=== PATIENT | male | born 1945 | race Caucasian/White ===

== ENCOUNTER 2016-10-20 10:01 | Day surgery (SDC) | payer MEDICARE ==
[2016-10-05 15:37] VITALS: BMI 29.0
[~2016-10-20] VITALS: Ht 170.2 cm; Wt 84.1 kg
[~2016-10-20 10:01] MED LIST: ASCO10003 PO; ASPI81TA28 PO; ATOR-24 PO; ATROPINE SULFATE 0.1 MG/ML 5ML SYR IV PRN; BUPR-79 PO; CLOP1TAB15 PO; CeleBREX 200 MG CAP PO SCH; DULA0.5I INJ; EpHEDrine SULFATE INJ 50 MG/ML AMP IV PRN; FENTANYL CITRATE INJ 50 MCG/1 ML 2 ML VIAL IV PRN; FLX10 PO; GARL10007 PO; GLIM4TAB2 PO; HYDROmorphone INJ 1 MG/ML SYR IV PRN; INDO-22 PO; INSU1INJ33 INJ; LACTATED RINGER'S 1000ML 1,000 ML IV SCH; MULT-506 PO; OMEP40CA PO; ONDANSETRON INJ 2 MG/ML 2 ML VIAL IV PRN; PREGABALIN 75 MG CAP PO SCH; TRAM-10 PO
[2016-10-20 10:40] VITALS: BP 140/75; PULSE 75; TEMP 36.7; O2SAT 95; Ht 170.2 cm; Wt 84.1 kg
[2016-10-20] MEDS ORDERED: CYAN100048 PO (11:23)
[2016-10-20] MEDS ORDERED: GLYCOPYRROLATE INJ 0.2 MG/ML VIAL ONE ×2 (11:46→13:18)
[2016-10-20] MEDS ORDERED: NEOSTIGMINE METHYLSULFATE 1 MG/ML 10ML VIAL ONE (11:46)
[2016-10-20] MEDS ORDERED: MIDAZOLAM HCL 1 MG/ML 2ML VIAL ONE (11:46)
[2016-10-20] MEDS ORDERED: ROCURONIUM BROMIDE 10 MG/ML 5 ML VIAL ONE ×2 (11:46→13:41)
[2016-10-20] MEDS ORDERED: PROPOFOL IV EMULSION 10 MG/ML 20 ML VIAL IV ONE (11:46)
[2016-10-20] MEDS ORDERED: FENTANYL CITRATE INJ 50 MCG/1 ML 2 ML VIAL ONE (11:46)
[2016-10-20] MEDS ORDERED: DEXAMETHASONE SOD INJ 4 MG/ML VIAL ONE (11:46)
[2016-10-20] MEDS ORDERED: ONDANSETRON INJ 2 MG/ML 2 ML VIAL ONE (11:46)
[2016-10-20] MEDS ORDERED: LIDOCAINE HCL 2% 2 ML VIAL (20MG/ML) ONE (11:46)
--- NOTE | 2016-10-20 12:02 | History and Physical ---
History & Physical Date Oct 20, 2016. Chief Complaint LBP and neurogenic claudication History of Present Illness The patient is a 71 year old male with complaints of above for years that have worsened despite outpatient therapy. His MRI shows L4-5 stenosis. no incontinence. no numbness at rest. Past Medical/Surgical History HTN CKD stage 3 hx TIA DM type II EGD colonoscopy shoulder surgery Additional History Hepatic Disease: No Endocrine Disorder: No Kidney Disease: Yes Hypertension: Yes Heart Disease: No Bleeding Tendencies: No Infectious Diseases: No Allergies Coded Allergies: Adhesives (Unverified Allergy, Unknown, RASH, 10/20/16) NO KNOWN DRUG ALLERGIES (Unverified Allergy, Unknown, NONE, 10/20/16) Home Medications Scheduled Ascorbic Acid (Vitamin C), 1,000 MG PO BID Aspirin (Aspirin Ec), 81 MG PO UD Atorvastatin (Lipitor), 40 MG PO QPM Bupropion (Wellbutrin Sr), 150 MG PO QAM Clopidogrel (Plavix), 75 MG PO QAM Dulaglutide (Trulicity), 1 DOSE INJ WEEKLY Garlic (Garlic), 1,000 MG PO QAM Glimepiride (Glimepiride), 1 TAB PO BID Indomethacin (Indocin), 25 MG PO PRN Insulin Degludec (Tresiba Flextouch), 30 UNITS INJ QPM Multivitamin (Multivitamin), 1 TAB PO QAM Omeprazole (Prilosec), 40 MG PO BID Tramadol (Ultram), 50 MG PO Q6H Scheduled PRN Cyclobenzaprine HCl (Cyclobenzaprine HCl), 10 MG PO HS PRN for RN Miscellaneous Medications Cyanocobalamin (Vitamin B-12), PO Physical Examination Skin: warm/dry Eyes: normal inspection ENT: normal ENT inspection Head: normocephalic, atraumatic Neck: supple, trachea midline Respiratory/Chest: lungs clear, no respiratory distress Cardiovascular: regular rate, rhythm Back: normal inspection Extremities: normal inspection, normal range of motion Neurologic/Psych: no motor/sensory deficits, alert, normal reflexes, oriented x 3 Diagnosis L4-5 stenosis Plan of Treatment L4-5 decompression
[2016-10-20] MEDS ORDERED: OXYC-57 PO (12:09)
--- NOTE | 2016-10-20 12:10 | Discharge Instructions ---
Discharge Instructions Admission Reason for Admission: Lumbar Spinal Stenosis Discharge Discharge Diagnosis / Problem: Lumbar Stenosis Discharge Goals Goal(s): Decrease discomfort, Improve function, Increase independence Activity Recommendations Activity Limitations: as noted below Lifting Limitations: no more than 5 pounds Exercise/Sports Limitations: until after follow-up appointment May Resume Sexual Activity: after follow-up appointment Shower/Bathe: may shower/bathe in 3 days . Instructions / Follow-Up Instructions / Follow-Up ACTIVITY RECOMMENDATIONS: SELF CARE INSTRUCTIONS AFTER A LAMINECTOMY 1. No prolonged sitting (less than 30 minutes for the first 3 weeks after surgery). 2. No bending, lifting more than 5 pounds, or twisting (roll like a log when turning in bed). 3. You may shower 3 days after surgery if no drainage from wound. Thoroughly dry wound. Do not soak in the tub. 4. Please walk as much as you can for exercise. Gradually increase the distance that you walk as your endurance increases. 5. You may drive in 7-10 days if you are comfortable and no longer requiring pain medications. SPECIAL CARE INSTRUCTIONS: VERY IMPORTANT TO READ AND REVIEW A. Your surgical incision has been closed with a cosmetic suture under the skin that will dissolve in about 6 weeks. In 14 days, you can use a pair of clean scissors and cut the suture that is left outside of the skin at the ends of your incision. B. Complications are uncommon, but please contact us if you have any signs or symptoms of: 1. wound infection (fever higher than 102.5 degrees F, redness, separation of wound, drainage, or increasing pain from the incision) 2. blood clots in legs (pain, swelling, redness and warmth in legs) 3. urinary tract infection (fever higher than 102.5 degrees, burning upon urination or increased frequency of urination) 4. nerve problems (inability to walk on your toes or heels, numbness, loss of bowel or bladder control) 5. any other symptoms that concern you. C. Please call the office at if you have any concerns or questions about your operation or recovery. MANAGING PAIN AFTER SPINAL SURGERY 1. Narcotic medication is intended for short-term use and will be provided for surgical pain. Surgical pain usually lasts for a period of 4-6 weeks. Narcotic medication includes Percocet, Vicodin, Darvocet, Tylenol #3 or Lortab. 2. Longer-term pain is more appropriately treated with non-narcotic medication such as Tylenol ES. 3. Muscle spasm is not appropriately treated with narcotics. Muscle relaxers such as Soma, Flexeril or Skelaxin can be used along with Tylenol ES. 4. Remember that we all live with some "aches and pains". This is not unusual or uncommon after an injury or as we get older. 5. We will provide appropriate medication within the normal guidelines of their prescribed use. We will also be very cautious and aware of potential abuse and extended duration of patients' medication needs. 6. Please allow 2-3 days to process refills. Prescriptions will not be mailed but must be picked up at the office. FOLLOW UP VISIT: Keep your scheduled follow-up appointment. Any questions, please call the office at . Current Hospital Diet Patient's current hospital diet: Discharge Diet Recommended Diet: Regular Diet Pending Studies Studies pending at discharge: no Medical Emergencies . Who to Call and When: Medical Emergencies: If at any time you feel your situation is an emergency, please call 911 immediately. . Non-Emergent Contact Non-Emergency issues call your: Surgeon Call Non-Emergent contact if: temperature is above 101, your pain is not controlled, your pain is worsening, your pain is unusual for you, your pain is concerning you, wound has increased drainage, wound has increased redness, wound has increased pain, you have any medication questions . "Provider Documentation" section prepared by Giacomo Ruff. VTE Core Measure Inpt VTE Proph given/why not?: Thiago Oropeza
[2016-10-20] MEDS: CEFAZOLIN 2000 MG/60 ML D5W IV SCH ×3 (12:27→12:55)
[2016-10-20] MEDS ORDERED: PHENYLEPHRINE 100MCG/ML 5ML SYR ONE (13:01)
[2016-10-20] MEDS ORDERED: BUPIVACAINE/EPINEPHRINE 0.5% MPF 1:200,000 30 ML VIAL INJ ONE (13:13)
[2016-10-20] MEDS ORDERED: THROMBIN FOR SOLN 20000 UNIT KIT TOP ONE (13:13)
[2016-10-20] MEDS ORDERED: FLOSEAL HEMOSTATIC MATRIX 5ML TOP ONE (13:17)
[2016-10-20] MEDS ORDERED: BACITRACIN 50000 UNIT VIAL IR ONE (13:17)
[2016-10-20] MEDS ORDERED: SODIUM CHLORIDE 0.9% 1000ML 1,000 ML IV SCH (13:18)
--- NOTE | 2016-10-20 13:18 | [facility] Post Operative Brief Note ---
Immediate Operative Summary Operative Date Oct 20, 2016. Pre-Operative Diagnosis L4-L5 Stenosis Post-Operative Diagnosis L4-L5 Stenosis Procedure(s) Performed L4-L5 Decompression Sur[address]. Hugo Edgar Underwriting Clerk Surgeon(s) William Ruff PA-C Estimated Blood Loss 10 Findings dict Specimens none per surgeon Dr. Hugo Edgar
[2016-10-20] MEDS ORDERED: ONDANSETRON INJ 2 MG/ML 2 ML VIAL IV PRN (13:30)
[2016-10-20] MEDS ORDERED: OXYCODONE/ACETAMINOPHEN 5-325 TAB PO PRN (13:30)
[2016-10-20] MEDS ORDERED: MoRPHine SULFATE 4 MG/ML 1 ML CARP\\VIAL IV PRN (13:30)
--- NOTE | 2016-10-20 13:44 | DIAGNOSTIC IMAGING REPORT ---
INTRAOPERATIVE RADIOGRAPH CLINICAL HISTORY: L4-L5 spinal decompression. Fluoroscopy time: 3 seconds. FINDINGS: A single spot fluoroscopic view of the lower lumbar spine is presented. A surgical probe projects posteriorly at the L4-L5 level. IMPRESSION: Intraoperative image from L4 -L5 spinal decompression as above. Electronically signed by: Hipolito Torres M.D. 10/20/2016 1:43 PM Dictated Date/Time: 10/20/2016 1:42 PM
--- NOTE | 2016-10-20 14:01 | OPERATIVE REPORT ---
DATE OF OPERATION: 10/20/2016 PREOPERATIVE DIAGNOSES: L4-L5 spinal stenosis. POSTOPERATIVE DIAGNOSIS: Same. PROCEDURES: L4-L5 decompression. SURGEON: Dr. Edgar. PATTERN MARKER: Giacomo Ruff PA-C. Please note he participated in all portions of the procedure and was critical for performance of the procedure, participated on positioning, prepping, draping, retraction and wound closure. ANESTHESIA: General endotracheal anesthesia. COMPLICATIONS: None. ESTIMATED BLOOD LOSS: Minimal. OPERATION AND FINDINGS: PROCEDURE: After identification of patient and operative level, he was brought to the OR where he underwent induction of general anesthesia. He was then positioned prone on [facility] OR table. All bony prominences were well padded. Care was taken to avoid pressure on the periorbital area. Lumbosacral area was sterilely prepped and draped in usual fashion. Antibiotics were administered. Time-out was performed. Level was confirmed and skin incision was localized with lateral fluoroscopy and a spinal needle. I infiltrated the skin with 0.5% Marcaine with epinephrine, made skin incision over the spinous process of L4 and L5 and exposed the L5 interlaminar window. Gelpi retractors were placed. Level was confirmed with fluoroscopy and marked and inferior portion of the spinous process of L4 and the inferior half of the lamina of L4 removed. I took down ligament flavum and then used Kerrisons to undercut the facets medially at L4-L5 bilaterally. After completion of decompression, I palpated the L5 nerve roots passed through the lateral recess without compression. I applied bone wax and FloSeal for hemostasis, irrigated with bacitracin solution and then closed in layered fashion. All sponge and needle counts were correct at the end of the case. I attest to the content of the Intraoperative Record and any orders documented therein. Any exceptio ns are noted below.
--- NOTE | 2016-10-20 14:56 | Anesthesiology Progress Note ---
Anesthesia Post Op Note Date & Time Oct 20, 2016 at 14:53 Vital Signs Pain Intensity: 4 Vital Signs Past 12 Hours Date Time Temp Pulse Resp B/P Pulse Ox O2 Delivery O2 Flow Rate FiO2 10/20/16 14:14 95 15 94 10/20/16 14:14 95 15 10/20/16 14:13 111/68 10/20/16 14:09 96 11 10/20/16 14:09 96 11 92 10/20/16 14:08 111/61 10/20/16 14:04 95 18 10/20/16 14:04 95 18 89 10/20/16 14:03 116/67 10/20/16 13:59 98 16 10/20/16 13:59 16 10/20/16 13:58 125/72 10/20/16 13:54 101 16 10/20/16 13:54 99 16 91 10/20/16 13:53 129/80 10/20/16 13:52 98 19 10/20/16 13:52 97 19 95 10/20/16 13:48 119/72 10/20/16 13:47 97 16 99 10/20/16 13:47 98 16 10/20/16 13:43 126/76 10/20/16 13:42 100 16 99 10/20/16 13:42 101 16 10/20/16 13:38 138/79 10/20/16 13:37 98 19 10/20/16 13:37 100 19 100 10/20/16 13:37 36.0 98 16 138/85 99 Mask 10 10/20/16 10:40 36.7 75 20 140/75 95 Room Air Notes Mental Status: alert / awake / arousable, participated in evaluation Pt Amnestic to Procedure: Yes Nausea / Vomiting: adequately controlled Pain: adequately controlled Airway Patency, RR, SpO2: stable & adequate BP & HR: stable & adequate Hydration State: stable & adequate Anesthetic Complications: no major complications apparent When awake and using incentive spirometer, Mr. Cejas SpO2 is in mid 90's (his baseline). When lying quietly his SpO2 on room air noted to drop to 89-90%. He denies shortnes of breath and sounds clear to auscultation bilaterally. He snores at night but no formal CHELA diagnosis. Plan is to send to phase 2 for additional recovery and get him OOB and moving. If his SpO2 remain in mid 90's, he will be ok for discharge to home. Will discuss case with communications technician anesthesia provider.
[2016-10-20 15:00] VITALS: BP 102/65; PULSE 94; TEMP 36.7; O2SAT 93
[2016-10-20] MEDS: OXYCODONE/ACETAMINOPHEN 5-325 TAB PO PRN ×2 (15:25→16:16)
[2016-10-20 15:50] VITALS: BP 121/75; PULSE 95; TEMP 36.6; O2SAT 94
[2016-10-20 17:40] VITALS: BP 119/75; PULSE 86; TEMP 36.6; O2SAT 95
== END 2016-10-20 17:51 | disposition home or self-care (01) ==
LOC: C.ACU 10:01
PROVIDERS: ATTEND Orthopaedic Surgery Orthopaedic Surgery of the Spine
DX: M48.06 Spinal stenosis, lumbar region (principal); N18.3 Chronic kidney disease, stage 3 (moderate); I12.9 Hypertensive chronic kidney disease with stage 1 through stage 4 chronic kidney disease, or unspecified chronic kidney disease; E11.9 Type 2 diabetes mellitus without complications; Z86.73 Personal history of transient ischemic attack (TIA), and cerebral infarction without residual deficits; Z79.82 Long term (current) use of aspirin; Z98.890 Other specified postprocedural states